=== PATIENT | female | born 1935 | race Caucasian/White ===

== ENCOUNTER → 2017-07-12 | Outpatient (CLI) | payer MEDICARE ==
--- NOTE | 2017-07-12 13:57 | CT ---
EXAMINATION TYPE: CT chest wo con DATE OF EXAM: 07/12/2017 COMPARISON: NONE HISTORY: Interstitial lung disease CT DLP: 95 mGycm. Automated Exposure Control for Dose Reduction was Utilized. TECHNIQUE: CT scan of the thorax is performed without IV contrast with noncontiguous sections limiti ng evaluation for pulmonary nodule given the high-resolution protocol for evaluation of interstitial lung disease. FINDINGS: LUNGS: There are small bilateral pleural effusions. There is no evidence of bronchiectasis or honeyco mbing. Pleural parenchymal scarring is seen at the lung bases. Evaluation for pulmonary nodules limit ed given noncontiguous slices. No pulmonary mass is identified. Minimal biapical pleural parenchymal scarring is present. There is no focal consolidation or interstitial edema. No interlobular septal th ickening is identified. The lungs are grossly clear, there is no concerning parenchymal mass or nodul e identified. There is no pleural effusion or pneumothorax seen. The tracheobronchial tree is milner nt. MEDIASTINUM: Lack of IV contrast is noted to limit evaluation for mediastinal and especially hilar ad enopathy. There are no definitive greater than 1 cm hilar or mediastinal lymph nodes. There is cardio megaly and enlargement of the main pulmonary artery measuring up to 3.4 cm. Ascending thoracic aorta is within normal limits measuring 3.7 cm. Small moderate pericardial effusion is evident. Partial vis ualization of a left-sided cardiac device is noted. Nonspecific mediastinal adenopathy is seen with e nlargement of a precarinal lymph node measuring up to 1.1 cm as well as a right hilar lymph node parth uring 1.1 cm and upper limits of normal left hilar lymph node measuring 1.0 cm in short axis. OTHER: Varicosities are noted along the superior chest wall/neck. Moderate multilevel degenerative ch anges of the thoracic spine are noted. IMPRESSION: 1. No evidence of interstitial lung disease, focal consolidation or pulmonary mass. Noncontiguous sli brandon limit evaluation for pulmonary nodule. 2. Small bilateral pleural effusions may be on the basis of congestive heart failure as there is card iomegaly appreciated. No interstitial pulmonary edema. 3. Small moderate pericardial effusion. 4. Enlargement of the main pulmonary artery, suggestive of underlying pulmonary arterial hypertension .
== END ==
LOC: RADCTMAIN 13:19
PROVIDERS: ATTEND Internal Medicine Sleep Medicine
DX: J90 Pleural effusion, not elsewhere classified (principal); I31.3 Pericardial effusion (noninflammatory); I28.9 Disease of pulmonary vessels, unspecified
CPT/HCPCS: 71250

== ENCOUNTER 2017-12-25 17:15 | Inpatient (IN) | payer MEDICARE ==
[2017-12-25] MEDS ORDERED: IPRATROPIUM-ALBUTEROL 3 ML NEB INHALATION STA (17:26)
[2017-12-25] MEDS ORDERED: methylPREDNISolone SOD SUCCI 125 MG/2 ML VIAL IV STA (17:26)
--- NOTE | 2017-12-25 17:30 | ED ---
General Adult HPI - General Chief complaint: Shortness of Breath Stated complaint: SUSAN Time Seen by Provider: 12/25/17 17:21 Source: patient, family, EMS, RN notes reviewed Mode of arrival: EMS Limitations: altered mental status - History of Present Illness Initial comments: Patient is a pleasant 82-year-old female presenting to the emergency department with difficulty in breathing. was recently admitted to a different hospital with adenovirus pneumonia. Patient is a very poor historian secondary to advanced dementia. History is mostly taken from EMS and somewhat from the family. Patient has been short of breath over the past couple of days. Patient did have oxygen saturation in the upper 80s at home. - Related Data Home Medications Medication Instructions Recorded Confirmed Ascorbic Acid [Vitamin C] 500 mg PO MOTH 05/30/14 12/25/17 Calcium Carbonate [Tums] 750 mg PO TUFR 05/30/14 12/25/17 Carbidopa/Levodopa [Sinemet CR 1 tab PO BID@0900,1300,1700 05/30/14 12/25/17 50-200 mg] Cholecalciferol [Vitamin D3] 2,000 units PO DAILY 05/30/14 12/25/17 Donepezil [Aricept] 10 mg PO HS 05/30/14 12/25/17 Hypromellose [Artificial Tears] 2 drop BOTH EYES QID 05/30/14 12/25/17 Neupro 8 mg TRANSDERM HS 05/30/14 12/25/17 Rivaroxaban [Xarelto] 15 mg PO AC-SUPPER 05/30/14 12/25/17 Sennosides-Docusate Sodium 2 tab PO HS 05/30/14 12/25/17 [Senokot-S] Aspirin EC [Ecotrin Low Dose] 81 mg PO AC-BRKFST 05/31/14 12/25/17 Carvedilol [Coreg*] 12.5 mg PO AC-BID 06/24/15 12/25/17 Lactulose 20 gm PO HS 06/24/15 12/25/17 Magnesium Hydroxide [Milk of 2,400 mg PO DAILY PRN 06/24/15 12/25/17 Magnesia] Ondansetron [Zofran ODT] 4 mg PO TID PRN 06/24/15 12/25/17 Carbidopa-Levodopa 25-100 mg 1 tab PO DAILY@0700 06/26/15 12/25/17 [Sinemet 25-100 mg] Carbidopa-Levodopa 25-100 mg 1 tab PO DAILY@1700 PRN 12/05/15 12/25/17 [Sinemet 25-100 mg] Escitalopram [Lexapro] 10 mg PO HS 12/05/15 12/25/17 Cefaclor [Ceclor] 250 mg PO DAILY 12/25/17 12/25/17 Enalapril [Vasotec] 5 mg PO HS 12/25/17 12/25/17 L. Rhamnosus GG/Inulin [Culturelle 1 cap PO AC-SUPPER 12/25/17 12/25/17 Probiotics Capsule] Allergies Allergy/AdvReac Type Severity Reaction Status Date / Time sulfite Allergy Unknown Verified 12/25/17 17:46 Review of Systems ROS Statement: Those systems with pertinent positive or pertinent negative responses have been documented in the HPI. ROS Other: All systems not noted in ROS Statement are negative. Limitations: ROS unobtainable due to patients medical condition Constitutional: Denies: fever Eyes: Denies: eye discharge ENT: Denies: epistaxis Respiratory: Reports: dyspnea Cardiovascular: Denies: edema Gastrointestinal: Denies: hematemesis Skin: Denies: rash Past Medical History Past Medical History: Atrial Fibrillation, CVA/TIA, Dementia, Hypertension, Osteoarthritis (OA) Additional Past Medical History / Comment(s): PARKINSONS, gait unsteady/vertigo, constipation, chronic uti's per pts daughter-pt was found to have MRSA in urine 2-2015, chronic back pain, rt hip fx,neuropathy,fx lumbar vertebre , diet controlled diabetes no meds but checks bs daily, thyroid nodules, skin cancer, anxiety History of Any Multi-Drug Resistant Organisms: MRSA Date of last positivie culture/infection: 05/2015 per pts daughter MDRO Source:: urine Past Surgical History: Orthopedic Surgery, Pacemaker Additional Past Surgical History / Comment(s): Rt hemiarthroplasy, compression fractures in back, pacemaker in 2006 (battery change 301, cataracts-lens implants, lt knee arthroscopy. Past Anesthesia/Blood Transfusion Reactions: No Reported Reaction Additional Past Anesthesia/Blood Transfusion Reaction / Comment(s): No transfusions reported Type of Cardiac Device: Permanent Pacemaker Device Placement Date:: 2006 Past Psychological History: No Psychological Hx Reported Smoking Status: Never smoker Past Alcohol Use History: None Reported Past Drug Use History: None Reported - Past Family History Father Additional Family Medical History / Comment(s): dad in his 50"s unk cause Mother Family Medical History: Coronary Artery Disease (CAD) General Exam Limitations: altered mental status General appearance: alert, in no apparent distress Head exam: Present: atraumatic Eye exam: Present: normal appearance, PERRL ENT exam: Present: normal oropharynx Neck exam: Present: normal inspection Respiratory exam: Present: wheezes, rhonchi Cardiovascular Exam: Present: regular rate, normal rhythm GI/Abdominal exam: Present: soft. Absent: distended, tenderness Extremities exam: Present: normal inspection. Absent: pedal edema, calf tenderness Neurological exam: Present: alert, altered Psychiatric exam: Present: normal affect, normal mood Skin exam: Present: normal color. Absent: rash Course Vital Signs 12/25/17 12/25/17 12/25/17 17:22 18:20 18:30 Temperature 97.1 F L Pulse Rate 71 60 62 Respiratory 20 20 Rate Blood Pressure 169/78 O2 Sat by Pulse 92 L Oximetry 12/25/17 12/25/17 19:15 19:32 Temperature 99.8 F H Pulse Rate 68 66 Respiratory 18 Rate Blood Pressure 207/83 180/101 O2 Sat by Pulse 98 Oximetry EKG Findings - EKG Comments: EKG Findings:: Paced rhythm at 72. QRS 180. QT 458. QTC 51. Left axis. Wide -complex QRS. Nonspecific ST-T. Medical Decision Making - Medical Decision Making Patient reevaluated and somewhat improved. Patient still has some wheezing. Case discussed with Dr. olguin, covering for Dr. Moore, who will admit for Dr. Avila. - Lab Data Result diagrams: 12/25/17 17:58 Lab Results 12/25/17 12/25/17 12/25/17 Range/Units 17:58 17:58 17:58 WBC 9.3 (3.8-10.6) k/uL RBC 4.78 (3.80-5.40) m/uL Hgb 14.6 (11.4-16.0) gm/dL Hct 44.7 (34.0-46.0) % MCV 93.5 (80.0-100.0) fL MCH 30.5 (25.0-35.0) pg MCHC 32.6 (31.0-37.0) g/dL RDW 13.3 (11.5-15.5) % Plt Count 143 L (150-450) k/uL Neutrophils % 78 % Lymphocytes % 14 % Monocytes % 4 % Eosinophils % 2 % Basophils % 0 % Neutrophils # 7.3 (1.3-7.7) k/uL Lymphocytes # 1.4 (1.0-4.8) k/uL Monocytes # 0.4 (0-1.0) k/uL Eosinophils # 0.2 (0-0.7) k/uL Basophils # 0.0 (0-0.2) k/uL PT 11.8 (9.0-12.0) sec INR 1.2 H (<1.2) APTT 26.3 (22.0-30.0) sec NT-Pro-B Natriuret Pep 2090 pg/mL - Radiology Data Radiology results: image reviewed (Chest x-ray shows mild interstitial changes.) Disposition Clinical Impression: Dyspnea Disposition: ADMITTED IP TO THIS HOSP Is patient prescribed a controlled substance at d/c from ED?: No Referrals: Jayce Avila MD [Primary Care Provider] - 1-2 days Decision Time: 19:43
[2017-12-25 18:09] LABS: Basophils % (A) 0 %; Eosinophils # (A) 0.2 k/uL (0-0.7); Eosinophils % (A) 2 %; HCT 44.7 % (34.0-46.0); HGB 14.6 gm/dL (11.4-16.0); Lymphocytes # (A) 1.4 k/uL (1.0-4.8); Lymphocytes % (A) 14 %; MCH 30.5 pg (25.0-35.0); MCHC 32.6 g/dL (31.0-37.0); MCV 93.5 fL (80.0-100.0); Mean Platelet Volume 8.8; Monocytes # (A) 0.4 k/uL (0-1.0); Monocytes % (A) 4 %; Neutrophils # (A) 7.3 k/uL (1.3-7.7); Neutrophils % (A) 78 %; Platelet Count 143 k/uL (150-450); RBC 4.78 m/uL (3.80-5.40); RDW 13.3 % (11.5-15.5); WBC 9.3 k/uL (3.8-10.6)
[2017-12-25 18:18] LABS: INR 1.2 (<1.2); Partial Thromboplastin Time 26.3 sec (22.0-30.0); Prothrombin Time 11.8 sec (9.0-12.0)
--- NOTE | 2017-12-25 18:55 | XR ---
EXAMINATION TYPE: XR chest 2V DATE OF EXAM: 12/25/2017 COMPARISON: 12/05/2015 HISTORY: Atrial fibrillation TECHNIQUE: Frontal and lateral views of the chest are obtained. FINDINGS: Heart appears enlarged. There is mild congestion. There is small linear density at the dani g bases. There is left axillary pacemaker with the lead tips in the right ventricle. There is no pulm onary consolidation. IMPRESSION: There is evidence of mild heart failure that is new compared to last exam. There are pro bably small pleural effusions.
[2017-12-25] MEDS ORDERED: LISINOPRIL 10 MG TAB PO STA (19:42)
[2017-12-25] MEDS ORDERED: IPRATROPIUM-ALBUTEROL 3 ML NEB INHALATION PRN (19:43)
[2017-12-25] MEDS: SODIUM CHLORIDE 0.9% 1,000 ML IV SCH (19:55)
[2017-12-25 20:26] LABS: ALT 16 U/L (9-52); AST 27 U/L (14-36); Albumin 3.8 g/dL (3.5-5.0); Alkaline Phosphatase 51 U/L (38-126); Anion Gap 8 mmol/L; Blood Urea Nitrogen 17 mg/dL (7-17); Calcium 9.1 mg/dL (8.4-10.2); Carbon Dioxide 25 mmol/L (22-30); Chloride 106 mmol/L (98-107); Glucose 118 mg/dL (74-99); Potassium 4.1 mmol/L (3.5-5.1); Sodium 139 mmol/L (137-145); Total Bilirubin 0.8 mg/dL (0.2-1.3); Total Protein 6.9 g/dL (6.3-8.2)
[2017-12-25 20:45] LABS: Creatine Kinase MB 0.8 ng/mL (0.0-2.4); Troponin I 0.032 ng/mL (0.000-0.034)
[2017-12-25] MEDS: LEVOFLOXACIN 500 MG TAB PO SCH (20:53)
[2017-12-25 21:28] VITALS: BMI 25.0
[2017-12-25] MEDS ORDERED: hydrALAZINE HCL 25 MG TAB PO PRN (22:00)
[2017-12-25] MEDS ORDERED: LACTULOSE 20 GM/30 ML CUP PO PRN (22:01)
[2017-12-25] MEDS: DONEPEZIL 10 MG TAB PO SCH (22:50)
[2017-12-25] MEDS: RIVAROXABAN 15 MG TAB PO SCH (22:50)
[2017-12-25] MEDS: ROTIGOTINE 8 MG TRANSDERM SCH (22:50)
[2017-12-25] MEDS: ESCITALOPRAM 10 MG TAB PO SCH (22:50)
[2017-12-25] MEDS: CARVEDILOL 12.5 MG TAB PO SCH (22:52)
[2017-12-25] MEDS: LISINOPRIL 10 MG TAB PO SCH (22:52)
[2017-12-25] MEDS: SENNOSIDES-DOCUSATE SODIUM 1 EACH TAB PO SCH (22:54)
[2017-12-25] MEDS: CARBIDOPA-LEVODOPA ER 50-200MG 1 EACH TABLET.ER PO SCH (23:26)
[2017-12-25] MEDS: methylPREDNISolone SOD SUCCI 125 MG/2 ML VIAL IV SCH (23:27)
[2017-12-26] MEDS: IPRATROPIUM-ALBUTEROL 3 ML NEB INHALATION SCH ×5 (03:28→19:36)
[2017-12-26] MEDS: methylPREDNISolone SOD SUCCI 125 MG/2 ML VIAL IV SCH ×2 (05:17→12:22)
[2017-12-26 06:40] LABS: Glucose,Whole Blood 158 mg/dL (75-99)
[2017-12-26] MEDS: CARBIDOPA-LEVODOPA 25-100 MG 1 EACH TAB PO SCH (08:52)
[2017-12-26] MEDS: CARVEDILOL 12.5 MG TAB PO SCH ×2 (08:52→18:18)
[2017-12-26] MEDS: ASPIRIN 81 MG PO SCH (08:53)
[2017-12-26] MEDS ORDERED: CARBIDOPA-LEVODOPA ER 50-200MG 1 EACH TABLET.ER PO SCH (09:00)
[2017-12-26] MEDS: ARTIFICIAL TEARS-HYPROMELLOSE DROPS 15 ML BTL BOTH EYES SCH ×4 (10:47→21:07)
[2017-12-26] MEDS: CARBIDOPA-LEVODOPA ER 50-200MG 1 EACH TABLET.ER PO SCH ×3 (10:47→19:02)
[2017-12-26] MEDS ORDERED: FUROSEMIDE 10 MG/ML 4 ML VIAL IV STA (12:32)
--- NOTE | 2017-12-26 12:40 | P.CNPUL ---
History of Present Illness Consult date: 12/26/17 Requesting physician: Dilip E Carissa Reason for consult: dyspnea, hypoxemia, abnormal CXR/CT Chief complaint: Shortness of breath, hypoxemia, fluid overload History of present illness: This is a 82-year-old white female patient of Dr. Avila, who was brought to the emergency department per ambulance on 12/25/2017 for evaluation of dyspnea and hypoxemia, patient had that O2 saturation in the upper 80s at home. She denied any fever or chills, night any cough or congestion, night any chest pain, denied orthopnea. Denied any swelling in lower extremities. Patient is a poor historian, she has underlying history of dementia. She resides at home with her , who is currently hospitalized with pneumonia. Treat includes atrial fibrillation with permanent pacemaker placement, CVA/TIA, hypertension, osteoarthritis, gait instability, recurrent UTIs with history of MRSA in the urine in 2016, chronic back pain, diabetes mellitus type 2. No history of chronic lung disease. Patient is a lifetime nonsmoker. EKG showed paced rhythm at [address] T wave changes. Chest x-ray was completed and showed mild interstitial congestion, small pleural effusions, but no pulmonary consolidation. Patient has been afebrile, room air pulse ox 98% this morning, respirations are even and nonlabored, patient is comfortable and is not complaining of any ongoing dyspnea at this point. Her cough is congested, she is able to bring up some yellow sputum at times. I work showed no evidence of leukocytosis, and a BBC is 9.3, hemoglobin is 14.6, INR is 1.2, electrolytes and renal profile were unremarkable, troponin was negative 1, proBNP was slightly elevated at 2089. Review of Systems All systems: negative Constitutional: Denies chills, Denies fever Eyes: denies blurred vision, denies pain Ears, nose, mouth and throat: Denies headache, Denies sore throat Cardiovascular: Denies chest pain, Denies shortness of breath Respiratory: Reports congestion, Reports cough with sputum, Reports dyspnea, Denies cough Gastrointestinal: Denies abdominal pain, Denies diarrhea, Denies nausea, Denies vomiting Genitourinary: Denies dysuria, Denies hematuria Musculoskeletal: Denies myalgias Integumentary: Denies pruritus, Denies rash Neurological: Denies numbness, Denies weakness Psychiatric: Denies anxiety, Denies depression Endocrine: Denies fatigue, Denies weight change Past Medical History Past Medical History: Atrial Fibrillation, CVA/TIA, Dementia, Hypertension, Osteoarthritis (OA) Additional Past Medical History / Comment(s): PARKINSONS, gait unsteady/vertigo, constipation, chronic uti's per pts daughter-pt was found to have MRSA in urine 2-2015, chronic back pain, rt hip fx,neuropathy,fx lumbar vertebre 3-2011, diet controlled diabetes no meds but checks bs daily, thyroid nodules, skin cancer, anxiety History of Any Multi-Drug Resistant Organisms: MRSA Date of last positivie culture/infection: 05/2015 per pts daughter MDRO Source:: urine Past Surgical History: Orthopedic Surgery, Pacemaker Additional Past Surgical History / Comment(s): Rt hemiarthroplasy, compression fractures in back, pacemaker in 2006 (battery change 3013, cataracts-lens implants, lt knee arthroscopy. Past Anesthesia/Blood Transfusion Reactions: No Reported Reaction Additional Past Anesthesia/Blood Transfusion Reaction / Comment(s): No transfusions reported Type of Cardiac Device: Permanent Pacemaker Device Placement Date:: 2006 Past Psychological History: No Psychological Hx Reported Smoking Status: Never smoker Past Alcohol Use History: None Reported Past Drug Use History: None Reported - Past Family History Father Additional Family Medical History / Comment(s): dad in his 50"s unk cause Mother Family Medical History: Coronary Artery Disease (CAD) Medications and Allergies Home Medications Medication Instructions Recorded Confirmed Type Ascorbic Acid [Vitamin C] 500 mg PO MOTH 05/30/14 12/25/17 History Calcium Carbonate [Tums] 750 mg PO TUFR 05/30/14 12/25/17 History Carbidopa/Levodopa [Sinemet CR 1 tab PO TID@0900,1300,1700 05/30/14 12/25/17 History 50-200 mg] Cholecalciferol [Vitamin D3] 2,000 units PO DAILY 05/30/14 12/25/17 History Donepezil [Aricept] 10 mg PO HS 05/30/14 12/25/17 History Hypromellose [Artificial Tears] 2 drop BOTH EYES QID 05/30/14 12/25/17 History Neupro 8 mg TRANSDERM HS 05/30/14 12/25/17 History Rivaroxaban [Xarelto] 15 mg PO AC-SUPPER 05/30/14 12/25/17 History Sennosides-Docusate Sodium 2 tab PO HS 05/30/14 12/25/17 History [Senokot-S] Aspirin EC [Ecotrin Low Dose] 81 mg PO AC-BRKFST 05/31/14 12/25/17 History Carvedilol [Coreg*] 12.5 mg PO AC-BID 06/24/15 12/25/17 History Lactulose 20 gm PO HS 06/24/15 12/25/17 History Magnesium Hydroxide [Milk of 2,400 mg PO DAILY PRN 06/24/15 12/25/17 History Magnesia] Ondansetron [Zofran ODT] 4 mg PO TID PRN 06/24/15 12/25/17 History Carbidopa-Levodopa 25-100 mg 1 tab PO DAILY@0700 06/26/15 12/25/17 History [Sinemet 25-100 mg] Carbidopa-Levodopa 25-100 mg 1 tab PO DAILY@1700 PRN 12/05/15 12/25/17 History [Sinemet 25-100 mg] Escitalopram [Lexapro] 10 mg PO HS 12/05/15 12/25/17 History Cefaclor [Ceclor] 250 mg PO DAILY 12/25/17 12/25/17 History Docusate [Colace] 200 mg PO BID 12/25/17 12/25/17 History Enalapril [Vasotec] 5 mg PO HS 12/25/17 12/25/17 History L. Rhamnosus GG/Inulin [Culturelle 1 cap PO AC-SUPPER 12/25/17 12/25/17 History Probiotics Capsule] Allergies Allergy/AdvReac Type Severity Reaction Status Date / Time sulfite Allergy Unknown Verified 12/25/17 17:46 Physical Exam Vitals: Vital Signs Temp Pulse Pulse Resp BP BP Pulse Ox 12/26/17 08:00 98 16 12/26/17 07:31 98 16 152/72 98 12/26/17 07:05 60 12/26/17 06:53 68 12/26/17 03:36 16 12/26/17 03:35 60 16 96 12/25/17 23:09 98.4 F 68 16 164/89 98 12/25/17 21:21 97.4 F L 67 16 186/83 98 12/25/17 20:54 97.6 F 60 18 177/87 97 12/25/17 20:33 61 18 184/82 98 12/25/17 19:32 66 180/101 12/25/17 19:15 99.8 F H 68 18 207/83 98 12/25/17 18:30 62 20 12/25/17 18:20 60 12/25/17 17:22 97.1 F L 71 20 169/78 92 L Intake and Output 12/25/17 12/26/17 12/26/17 22:59 06:59 14:59 Intake Total 236 Balance 236 Intake: Oral 236 Other: Voiding Method Toilet Toilet Diaper Diaper # Voids 1 3 Weight 70.307 kg 68.5 kg GENERAL EXAM: Alert, active, comfortable in no apparent distress. HEAD: Normocephalic/atraumatic. EYES: Normal reaction of pupils, equal size. Conjunctiva pink, sclera white. NOSE: Clear with pink turbinates. THROAT: No erythema or exudates. NECK: No masses, no JVD, no thyroid enlargement, no adenopathy. CHEST: No chest wall deformity. Symmetrical expansion. LUNGS: Equal air entry with diffuse rhonchi, crackles at the right upper lobe, and bilateral bases. CVS: Regular rate and rhythm, normal S1 and S2, no gallops, no murmurs, no rubs ABDOMEN: Soft, nontender. No hepatosplenomegaly, normal bowel sounds, no guarding or rigidity. EXTREMITIES: No clubbing, no edema, no cyanosis, 2+ pulses and upper and lower extremities. MUSCULOSKELETAL: Muscle strength and tone normal. SPINE: No scoliosis or deformity SKIN: No rashes CENTRAL NERVOUS SYSTEM: Alert and oriented -2. No focal deficits, tone is normal in all 4 extremities. PSYCHIATRIC: Alert and oriented -2. Appropriate affect. Intact judgment and insight. Results - Laboratory Findings CBC and BMP: 12/25/17 17:58 12/25/17 19:32 PT/INR, D-dimer PT 11.8 sec (9.0-12.0) 12/25/17 17:58 INR 1.2 (<1.2) H 12/25/17 17:58 Abnormal lab findings: Abnormal Labs 12/25/17 12/25/17 12/25/17 17:58 17:58 19:32 Plt Count 143 L INR 1.2 H Glucose 118 H POC Glucose (mg/dL) 12/26/17 06:37 Plt Count INR Glucose POC Glucose (mg/dL) 158 H - Diagnostic Findings Chest x-ray: report reviewed Additional studies: EKG reviewed Assessment and Plan Plan: Assessment: #1. Acute hypoxic respiratory failure secondary to acute tracheobronchitis. There may be a component of mild congestive heart failure, with systolic dysfunction. Chest x-ray showed mild interstitial edema, and small pleural effusions. #2. Paroxysmal atrial fibrillation, patient has a permanent pacemaker in place , on chronic anticoagulation of Xarelto #3. Acute tracheobronchitis #4. History of advanced dementia #5. History of CVA/TIA, Parkinson's, gait instability #6. Hypertension #7. History of recurrent UTIs with episode of MRSA in the urine in 2016 #8. Chronic back pain #9. Diabetes mellitus 2 #10. Lifetime nonsmoker Plan: Continue steroids, nebulized bronchodilators, antibiotics. Patient is calm and comfortable, and denies any dyspnea. Chest x-ray was reviewed, and showed mild interstitial changes, and small left pleural effusion, patient was given a dose of Lasix. She is back on room air, her pulse ox is 98. Denies any chest pain, denies any fever or chills, seems to be congested, and she is bringing up some sputum. Increase activity, let the patient sit up in the chair, ambulate with assistance. We'll continue to follow I performed a history & physical examination of the patient and discussed their management with my nurse practitioner, Dea Landers. I reviewed the nurse practitioner's note and agree with the documented findings and plan of care. Lung sounds are positive for diffuse rhonchi and rales. The findings and the impression was discussed with the patient. I attest to the documentation by the nurse practitioner. Time with Patient: Greater than 30
[2017-12-26 12:57] LABS: Glucose,Whole Blood 272 mg/dL (75-99)
--- NOTE | 2017-12-26 14:08 | P.HPIM ---
History of Present Illness 82-year-old the present the female with advanced dementia and imbued much of the history from her was brought in because of shortness of breath patient did is comparing of shortness of breath complaining of cough unable to get much of the history from the patient as patient doesn't have much at baseline found to have pulmonary edema on the chest x-ray with elevated BNP in the JVD. Patient previous ejection fraction was around 45-50% with concentric the left anterior hypertrophy maybe even chronic diastolic dysfunction. Patient denied any fever chills patient is not wheezing on exam but although patient was started on systemic steroids which increased her blood sugar systemic steroids will be discontinued because all the continue inhaled steroids. Repeat echocardiogram will be obtained today. Physical therapy and occupational therapy consultation. Patient is not a smoker. Patient was given 1 dose of Lasix today pulmonology was consulted from ER. Review of Systems All other review of systems is negative but although unable to get much of the review of systems because of her critical condition. Past Medical History Past Medical History: Atrial Fibrillation, CVA/TIA, Dementia, Hypertension, Osteoarthritis (OA) Additional Past Medical History / Comment(s): PARKINSONS, gait unsteady/vertigo, constipation, chronic uti's per pts daughter-pt was found to have MRSA in urine 2-2015, chronic back pain, rt hip fx,neuropathy,fx lumbar vertebre 3-2011, diet controlled diabetes no meds but checks bs daily, thyroid nodules, skin cancer, anxiety History of Any Multi-Drug Resistant Organisms: MRSA Date of last positivie culture/infection: 05/2015 per pts daughter MDRO Source:: urine Past Surgical History: Orthopedic Surgery, Pacemaker Additional Past Surgical History / Comment(s): Rt hemiarthroplasy, compression fractures in back, pacemaker in 2006 (battery change 3013, cataracts-lens implants, lt knee arthroscopy. Past Anesthesia/Blood Transfusion Reactions: No Reported Reaction Additional Past Anesthesia/Blood Transfusion Reaction / Comment(s): No transfusions reported Type of Cardiac Device: Permanent Pacemaker Device Placement Date:: 2006 Past Psychological History: No Psychological Hx Reported Smoking Status: Never smoker Past Alcohol Use History: None Reported Past Drug Use History: None Reported - Past Family History Father Additional Family Medical History / Comment(s): dad in his 50"s unk cause Mother Family Medical History: Coronary Artery Disease (CAD) Medications and Allergies Home Medications Medication Instructions Recorded Confirmed Type Ascorbic Acid [Vitamin C] 500 mg PO MOTH 05/30/14 12/25/17 History Calcium Carbonate [Tums] 750 mg PO TUFR 05/30/14 12/25/17 History Carbidopa/Levodopa [Sinemet CR 1 tab PO TID@0900,1300,1700 05/30/14 12/25/17 History 50-200 mg] Cholecalciferol [Vitamin D3] 2,000 units PO DAILY 05/30/14 12/25/17 History Donepezil [Aricept] 10 mg PO HS 05/30/14 12/25/17 History Hypromellose [Artificial Tears] 2 drop BOTH EYES QID 05/30/14 12/25/17 History Neupro 8 mg TRANSDERM HS 05/30/14 12/25/17 History Rivaroxaban [Xarelto] 15 mg PO AC-SUPPER 05/30/14 12/25/17 History Sennosides-Docusate Sodium 2 tab PO HS 05/30/14 12/25/17 History [Senokot-S] Aspirin EC [Ecotrin Low Dose] 81 mg PO AC-BRKFST 05/31/14 12/25/17 History Carvedilol [Coreg*] 12.5 mg PO AC-BID 06/24/15 12/25/17 History Lactulose 20 gm PO HS 06/24/15 12/25/17 History Magnesium Hydroxide [Milk of 2,400 mg PO DAILY PRN 06/24/15 12/25/17 History Magnesia] Ondansetron [Zofran ODT] 4 mg PO TID PRN 06/24/15 12/25/17 History Carbidopa-Levodopa 25-100 mg 1 tab PO DAILY@0700 06/26/15 12/25/17 History [Sinemet 25-100 mg] Carbidopa-Levodopa 25-100 mg 1 tab PO DAILY@1700 PRN 12/05/15 12/25/17 History [Sinemet 25-100 mg] Escitalopram [Lexapro] 10 mg PO HS 12/05/15 12/25/17 History Cefaclor [Ceclor] 250 mg PO DAILY 12/25/17 12/25/17 History Docusate [Colace] 200 mg PO BID 12/25/17 12/25/17 History Enalapril [Vasotec] 5 mg PO HS 12/25/17 12/25/17 History L. Rhamnosus GG/Inulin [Culturelle 1 cap PO AC-SUPPER 12/25/17 12/25/17 History Probiotics Capsule] Allergies Allergy/AdvReac Type Severity Reaction Status Date / Time sulfite Allergy Unknown Verified 12/25/17 17:46 Physical Exam Vitals: Vital Signs Temp Pulse Pulse Resp BP BP Pulse Ox 12/26/17 12:38 12 93 L 12/26/17 12:00 98 16 12/26/17 11:52 62 12/26/17 11:42 66 12/26/17 08:00 98 16 12/26/17 07:31 98 16 152/72 98 12/26/17 07:05 60 12/26/17 06:53 68 12/26/17 03:36 16 12/26/17 03:35 60 16 96 12/25/17 23:09 98.4 F 68 16 164/89 98 12/25/17 21:21 97.4 F L 67 16 186/83 98 12/25/17 20:54 97.6 F 60 18 177/87 97 12/25/17 20:33 61 18 184/82 98 12/25/17 19:32 66 180/101 12/25/17 19:15 99.8 F H 68 18 207/83 98 12/25/17 18:30 62 20 12/25/17 18:20 60 12/25/17 17:22 97.1 F L 71 20 169/78 92 L Intake and Output 12/25/17 12/26/17 12/26/17 22:59 06:59 14:59 Intake Total 236 Balance 236 Intake: Oral 236 Other: Voiding Method Toilet Toilet Diaper Diaper # Voids 1 3 2 Weight 70.307 kg 68.5 kg PHYSICAL EXAMINATION: GENERAL: The patient is alert and oriented x3, not in any acute distress. Well developed, well nourished. HEENT: Pupils are round and equally reacting to light. EOMI. No scleral icterus. No conjunctival pallor. Normocephalic, atraumatic. No pharyngeal erythema. No thyromegaly. CARDIOVASCULAR: S1 and S2 present. No murmurs, rubs, or gallops elevated JVD. PULMONARY: Fairly good air entry into bilateral lung park no wheezing rhonchus breath sounds ABDOMEN: Soft, nontender, nondistended, normoactive bowel sounds. No palpable organomegaly. MUSCULOSKELETAL: No joint swelling or deformity. EXTREMITIES: No cyanosis, clubbing, or pedal edema. NEUROLOGICAL: Gross neurological examination did not reveal any focal deficits. SKIN: No rashes. Results CBC & Chem 7: 12/25/17 17:58 12/25/17 19:32 Labs: Abnormal Lab Results - Last 24 Hours (Table) 12/25/17 12/25/17 12/25/17 Range/Units 17:58 17:58 19:32 Plt Count 143 L (150-450) k/uL INR 1.2 H (<1.2) Glucose 118 H (74-99) mg/dL POC Glucose (mg/dL) (75-99) mg/dL 12/26/17 12/26/17 Range/Units 06:37 12:19 Plt Count (150-450) k/uL INR (<1.2) Glucose (74-99) mg/dL POC Glucose (mg/dL) 158 H 272 H (75-99) mg/dL Thrombosis Risk Factor Assmnt - Choose All That Apply Each Risk Factor Represents 2 Points: Malignancy Each Risk Factor Represents 3 Points: Age 75 years or older Thrombosis Risk Factor Assessment Total Risk Factor Score: 5 Thrombosis Risk Factor Assessment Level: High Risk Assessment and Plan Plan: -Short of breath hypoxemia: Secondary to possible CHF exacerbation chronic systolic as well as diastolic dysfunction with acute exacerbation previous exam ejection fraction around 45% patient will be given a dose of Lasix echocardiogram will be obtained. -Type 2 diabetes mellitus elevated blood sugars secondary to systemic steroids are do not believe she'll require any steroids at this time these will be discontinued -Advanced dementia probably will body dementia -History of Parkinson's fairly stable now -Hypertension -chronic low back pain
--- NOTE | 2017-12-26 15:34 | ECHOF ---
Referral Reason:CHF MEASUREMENTS -------- HEIGHT: 167.6 cm WEIGHT: 68.5 kg BP: 152/72 IVSd: 1.6 cm (0.6 - 1.1) LVIDd: 4.3 cm (3.9 - 5.3) LVPWd: 1.7 cm (0.6 - 1.1) IVSs: 1.9 cm LVIDs: 2.7 cm LVPWs: 2.2 cm Ao Diam: 2.8 cm (2.0 - 3.7) AV Cusp: 1.9 cm (1.5 - 2.6) LA Diam: 3.9 cm (2.7 - 3.8) MV EXCURSION: 7.636 mm (> 18.000) MV EF SLOPE: 46 mm/s (70 - 150) EPSS: 1.0 cm MV E Norm: 0.86 m/s MV DecT: 155 ms MV A Norm: 0.38 m/s MV E/A Ratio: 2.28 AR PHT: 690 ms RAP: 5.00 mmHg RVSP: 33.38 mmHg FINDINGS -------- Sinus rhythm. This was a technically good study. The left ventricular size is normal. There is severe concentric left ventricular hypertrophy. Ove rall left ventricular systolic function is normal with, an EF between 55 - 60 %. The right ventricle is normal in size and function. The left atrium is normal in size. The right atrium is normal in size. The aortic valve is trileaflet, and appears structurally normal. No aortic stenosis or regurgitation. Mild mitral regurgitation is present. Mild tricuspid regurgitation present. The right ventricular systolic pressure, as measured by Doppl er, is 33.38mmHg. Pulmonic valve appears structurally normal. The aortic root size is normal. Normal inferior vena cava with normal inspiratory collapse consistent with estimated right atrial pre ssure of 5 mmHg. The pericardium is normal. CONCLUSIONS -------- 1. Sinus rhythm. 2. This was a technically good study. 3. The left ventricular size is normal. 4. There is severe concentric left ventricular hypertrophy. 5. Overall left ventricular systolic function is normal with, an EF between 55 - 60 %. 6. The right ventricle is normal in size and function. 7. The left atrium is normal in size. 8. The right atrium is normal in size. 9. The aortic valve is trileaflet, and appears structurally normal. No aortic stenosis or regurgitati on. 10. Mild mitral regurgitation is present. 11. Mild tricuspid regurgitation present. 12. The right ventricular systolic pressure, as measured by Doppler, is 33.38mmHg. 13. Pulmonic valve appears structurally normal. 14. The aortic root size is normal. 15. Normal inferior vena cava with normal inspiratory collapse consistent with estimated right atrial pressure of 5 mmHg. 16. The pericardium is normal. SUPERVISOR COMMUNICATIONS AND SIGNALS: Litzy Zimmerman RDCS
[2017-12-26] MEDS ORDERED: CARBIDOPA-LEVODOPA 25-100 MG 1 EACH TAB PO PRN (17:00)
[2017-12-26 18:01] LABS: Glucose,Whole Blood 336 mg/dL (75-99)
[2017-12-26] MEDS: RIVAROXABAN 15 MG TAB PO SCH (18:18)
[2017-12-26] MEDS: INSULIN ASPART 100 UNIT/ML 1 ML 10 ML VIAL SQ SCH ×2 (18:18→21:08)
[2017-12-26 20:27] LABS: Glucose,Whole Blood 277 mg/dL (75-99)
[2017-12-26] MEDS: LISINOPRIL 10 MG TAB PO SCH (21:07)
[2017-12-26] MEDS: LEVOFLOXACIN 500 MG TAB PO SCH (21:07)
[2017-12-26] MEDS: DONEPEZIL 10 MG TAB PO SCH (21:07)
[2017-12-26] MEDS: ESCITALOPRAM 10 MG TAB PO SCH (21:07)
[2017-12-26] MEDS: SENNOSIDES-DOCUSATE SODIUM 1 EACH TAB PO SCH (21:07)
[2017-12-26] MEDS: ROTIGOTINE 8 MG TRANSDERM SCH (21:08)
[2017-12-26] MEDS: SODIUM CHLORIDE 0.9% 1,000 ML IV SCH (21:09)
[2017-12-27 06:46] LABS: Glucose,Whole Blood 114 mg/dL (75-99)
[2017-12-27] MEDS: CARBIDOPA-LEVODOPA 25-100 MG 1 EACH TAB PO SCH (07:12)
[2017-12-27 07:41] LABS: Calcium 9.1 mg/dL (8.4-10.2)
[2017-12-27 07:47] VITALS: BP 153/86; RESP 18; TEMP 97.5
[2017-12-27] MEDS: IPRATROPIUM-ALBUTEROL 3 ML NEB INHALATION SCH ×3 (08:09→16:40)
[2017-12-27] MEDS ORDERED: FUROSEMIDE 20 MG TAB PO SCH (09:00)
[2017-12-27] MEDS: CARVEDILOL 12.5 MG TAB PO SCH (09:45)
[2017-12-27] MEDS: CARBIDOPA-LEVODOPA ER 50-200MG 1 EACH TABLET.ER PO SCH ×2 (09:46→13:56)
[2017-12-27] MEDS: ASPIRIN 81 MG PO SCH (09:46)
[2017-12-27] MEDS: INSULIN ASPART 100 UNIT/ML 1 ML 10 ML VIAL SQ SCH ×2 (09:47→12:38)
[2017-12-27] MEDS: ARTIFICIAL TEARS-HYPROMELLOSE DROPS 15 ML BTL BOTH EYES SCH ×2 (11:33→13:03)
[2017-12-27 12:12] VITALS: PULSE 68
--- NOTE | 2017-12-27 12:23 | P.PN ---
Subjective Progress Note Date: 12/27/17 Principal diagnosis: Acute hypoxic rest she failure secondary to of mild congestive heart failure with systolic dysfunction, and acute tracheobronchitis, improved This is a 82-year-old white female patient of Dr. Avila, who was brought to the emergency department per ambulance on 12/25/2017 for evaluation of dyspnea and hypoxemia, patient had that O2 saturation in the upper 80s at home. She denied any fever or chills, night any cough or congestion, night any chest pain, denied orthopnea. Denied any swelling in lower extremities. Patient is a poor historian, she has underlying history of dementia. She resides at home with her , who is currently hospitalized with pneumonia. Treat includes atrial fibrillation with permanent pacemaker placement, CVA/TIA, hypertension, osteoarthritis, gait instability, recurrent UTIs with history of MRSA in the urine in 2016, chronic back pain, diabetes mellitus type 2. No history of chronic lung disease. Patient is a lifetime nonsmoker. EKG showed paced rhythm at [address] T wave changes. Chest x-ray was completed and showed mild interstitial congestion, small pleural effusions, but no pulmonary consolidation. Patient has been afebrile, room air pulse ox 98% this morning, respirations are even and nonlabored, patient is comfortable and is not complaining of any ongoing dyspnea at this point. Her cough is congested, she is able to bring up some yellow sputum at times. I work showed no evidence of leukocytosis, and a BBC is 9.3, hemoglobin is 14.6, INR is 1.2, electrolytes and renal profile were unremarkable, troponin was negative 1, proBNP was slightly elevated at 2090. On 12/27/2017 patient seen in follow-up. Feeling better, breathing easier, her pulse ox is 95%, patient is afebrile, those are stable. Lung sounds are significantly less congested on today's exam, some bibasilar crackles, oral significantly improved. Patient is occasionally coughing, she is able to bring up sputum. Afebrile, no chills. The patient on small dose of oral Lasix on a daily basis. Patient has diuresis, and her weight is down by 2.5 kg in the last 24 hours. No edema, patient is awake and alert, she states she has been walking to the bathroom, tolerating activity well. Objective - Vital Signs Vital signs: Vital Signs Temp 97.5 F L 12/27/17 07:10 Pulse 68 12/27/17 12:12 Resp 18 12/27/17 07:10 BP 153/86 12/27/17 07:10 Pulse Ox 95 12/27/17 07:10 Intake & Output 12/26/17 12/27/17 12/27/17 18:59 06:59 18:59 Intake Total 336 240 Balance 336 240 Weight 66 kg Intake: Oral 336 240 Other: Voiding Method Toilet Toilet Toilet Diaper Diaper Diaper Incontinent Incontinent Incontinent # Voids 2 1 - Exam GENERAL EXAM: Alert, active, comfortable in no apparent distress. HEAD: Normocephalic/atraumatic. EYES: Normal reaction of pupils, equal size. Conjunctiva pink, sclera white. NOSE: Clear with pink turbinates. THROAT: No erythema or exudates. NECK: No masses, no JVD, no thyroid enlargement, no adenopathy. CHEST: No chest wall deformity. Symmetrical expansion. LUNGS: Equal air entry with a few bibasilar crackles CVS: Regular rate and rhythm, normal S1 and S2, no gallops, no murmurs, no rubs ABDOMEN: Soft, nontender. No hepatosplenomegaly, normal bowel sounds, no guarding or rigidity. EXTREMITIES: No clubbing, no edema, no cyanosis, 2+ pulses and upper and lower extremities. MUSCULOSKELETAL: Muscle strength and tone normal. SPINE: No scoliosis or deformity SKIN: No rashes CENTRAL NERVOUS SYSTEM: Alert and oriented -2. No focal deficits, tone is normal in all 4 extremities. PSYCHIATRIC: Alert and oriented -2. Appropriate affect. Intact judgment and insight. - Labs CBC & Chem 7: 12/25/17 17:58 12/27/17 06:41 Labs: Abnormal Lab Results - Last 24 Hours (Table) 12/26/17 12/26/17 12/26/17 Range/Units 12:19 17:52 20:22 BUN (7-17) mg/dL Glucose (74-99) mg/dL POC Glucose (mg/dL) 272 H 336 H 277 H (75-99) mg/dL 12/27/17 12/27/17 Range/Units 06:41 06:44 BUN 37 H (7-17) mg/dL Glucose 123 H (74-99) mg/dL POC Glucose (mg/dL) 114 H (75-99) mg/dL Assessment and Plan Plan: Assessment: #1. Acute hypoxic respiratory failure secondary to a component of mild congestive heart failure, with systolic dysfunction. Chest x-ray showed mild interstitial edema, and small pleural effusions. #2. Paroxysmal atrial fibrillation, patient has a permanent pacemaker in place , on chronic anticoagulation of Xarelto #3. Acute tracheobronchitis #4. History of advanced dementia #5. History of CVA/TIA, Parkinson's, gait instability #6. Hypertension #7. History of recurrent UTIs with episode of MRSA in the urine in 2016 #8. Chronic back pain #9. Diabetes mellitus 2 #10. Lifetime nonsmoker Plan: Patient is improving, hypoxemia has resolved, she is on room air, breathing easier, no acute complaints. No signs are stable. She has received a few doses of IV steroids, a lot less congested. We'll put the patient on small dose of oral Lasix on a daily basis. She has diuresed. Increase activity as tolerated. Continue nebulized bronchodilators. I performed a history & physical examination of the patient and discussed their management with my nurse practitioner, Dea Landers. I reviewed the nurse practitioner's note and agree with the documented findings and plan of care. Lung sounds are positive for bibasilar rales. The findings and the impression was discussed with the patient. I attest to the documentation by the nurse practitioner. Time with Patient: Less than 30
[2017-12-27] MEDS ORDERED: POLYETHYLENE GLYCOL 3350 17 GM POWD.PACK PO SCH (12:30)
--- NOTE | 2017-12-27 16:48 | P.DS ---
Providers Date of admission: 12/26/17 18:22 Attending physician: Dilip Ferrer MD Consults: 12/25/17 19:43 Consult Physician Routine Consulting Provider: Brett Birch Consult Reason/Comments: dyspnea Do you want consulting provider notified?: Yes Primary care physician: Jayce oTrresqvi Hospital Course: Patient is admitted with status of breath found to have mild heart failure exacerbation patient and minimally depressed ejection fraction as well as diastolic dysfunction patient was started on low-dose of Lasix in my opinion Lasix dose may need to be increased down the line. Considering her age and fragile situation patient will be started on low-dose of Lasix. Patient was also treated for bronchitis. Patient is quite weak ideally benefit from subacute rehabilitation but the family is able to take care of him and wanted to take her to take her home. PHYSICAL EXAMINATION: GENERAL: The patient is alert and oriented x2-3, thin built fragile generalized weakness. HEENT: Pupils are round and equally reacting to light. EOMI. No scleral icterus. No conjunctival pallor. Normocephalic, atraumatic. No pharyngeal erythema. No thyromegaly. CARDIOVASCULAR: S1 and S2 present. No murmurs, rubs, or gallops. PULMONARY: Chest is clear to auscultation, no wheezing or crackles. ABDOMEN: Soft, nontender, nondistended, normoactive bowel sounds. No palpable organomegaly. MUSCULOSKELETAL: No joint swelling or deformity. EXTREMITIES: No cyanosis, clubbing, or pedal edema. NEUROLOGICAL: Gross neurological examination did not reveal any focal deficits. SKIN: No rashes. Assessment and Plan Plan: -Short of breath and hypoxemia: Secondary to possible CHF exacerbation chronic s diastolic dysfunction with acute exacerbation previous exam ejection issues ejection fraction normalized. -Mild acute bronchitis -Type 2 diabetes mellitus elevated blood sugars secondary to systemic steroids are do not believe she'll require any steroids at this time these will be discontinued -Advanced dementia probably possible Lewy body dementia -History of Parkinson's fairly stable now -Hypertension -chronic low back pain Plan - Discharge Summary New Discharge Prescriptions: New Furosemide [Lasix] 20 mg PO DAILY #30 tab Doxycycline Monohydrate [Monodox] 100 mg PO BID 3 Days #6 cap Continue Sennosides-Docusate Sodium [Senokot-S] 2 tab PO HS Ascorbic Acid [Vitamin C] 500 mg PO MOTH Rivaroxaban [Xarelto] 15 mg PO AC-SUPPER Donepezil [Aricept] 10 mg PO HS Cholecalciferol [Vitamin D3] 2,000 units PO DAILY Carbidopa/Levodopa [Sinemet CR 50-200 mg] 1 tab PO TID@0900,1300,1700 Calcium Carbonate [Tums] 750 mg PO TUFR Neupro 8 mg TRANSDERM HS Hypromellose [Artificial Tears] 2 drop BOTH EYES QID Aspirin EC [Ecotrin Low Dose] 81 mg PO AC-BRKFST Ondansetron [Zofran ODT] 4 mg PO TID PRN PRN Reason: Nausea Magnesium Hydroxide [Milk of Magnesia] 2,400 mg PO DAILY PRN PRN Reason: Constipation Lactulose 20 gm PO HS Carvedilol [Coreg*] 12.5 mg PO AC-BID Carbidopa-Levodopa 25-100 mg [Sinemet 25-100 mg] 1 tab PO DAILY@0700 Escitalopram [Lexapro] 10 mg PO HS Carbidopa-Levodopa 25-100 mg [Sinemet 25-100 mg] 1 tab PO DAILY@1700 PRN PRN Reason: PARKINSON'S SYMPTOMS Enalapril [Vasotec] 5 mg PO HS L. Rhamnosus GG/Inulin [Culturelle Probiotics Capsule] 1 cap PO AC-SUPPER Docusate [Colace] 200 mg PO BID Discontinued Cefaclor [Ceclor] 250 mg PO DAILY Discharge Medication List Ascorbic Acid [Vitamin C] 500 mg PO MOTH 05/30/14 [History] Calcium Carbonate [Tums] 750 mg PO TUFR 05/30/14 [History] Carbidopa/Levodopa [Sinemet CR 50-200 mg] 1 tab PO TID@0900,1300,1700 05/30/14 [ History] Cholecalciferol [Vitamin D3] 2,000 units PO DAILY 05/30/14 [History] Donepezil [Aricept] 10 mg PO HS 05/30/14 [History] Hypromellose [Artificial Tears] 2 drop BOTH EYES QID 05/30/14 [History] Neupro 8 mg TRANSDERM HS 05/30/14 [History] Rivaroxaban [Xarelto] 15 mg PO AC-SUPPER 05/30/14 [History] Sennosides-Docusate Sodium [Senokot-S] 2 tab PO HS 05/30/14 [History] Aspirin EC [Ecotrin Low Dose] 81 mg PO AC-BRKFST 05/31/14 [History] Carvedilol [Coreg*] 12.5 mg PO AC-BID 06/24/15 [History] Lactulose 20 gm PO HS 06/24/15 [History] Magnesium Hydroxide [Milk of Magnesia] 2,400 mg PO DAILY PRN 06/24/15 [History] Ondansetron [Zofran ODT] 4 mg PO TID PRN 06/24/15 [History] Carbidopa-Levodopa 25-100 mg [Sinemet 25-100 mg] 1 tab PO DAILY@0700 06/26/15 [ History] Carbidopa-Levodopa 25-100 mg [Sinemet 25-100 mg] 1 tab PO DAILY@1700 PRN [History] Escitalopram [Lexapro] 10 mg PO HS 12/05/15 [History] Docusate [Colace] 200 mg PO BID 12/25/17 [History] Enalapril [Vasotec] 5 mg PO HS 12/25/17 [History] L. Rhamnosus GG/Inulin [Culturelle Probiotics Capsule] 1 cap PO AC-SUPPER [History] Doxycycline Monohydrate [Monodox] 100 mg PO BID 3 Days #6 cap 12/27/17 [Rx] Furosemide [Lasix] 20 mg PO DAILY #30 tab 12/27/17 [Rx] Follow up Appointment(s)/Referral(s): Eulalia Henriquez MD [STAFF PHYSICIAN] - 1 Week Jayce Avila MD [Primary Care Provider] - 3 Days Discharge Disposition: HOME SELF-CARE
== END 2017-12-27 18:00 | disposition home or self-care (01) | DRG 291 ==
LOC: EC 17:15 → 3OBS 19:44 → OBSVTOIN 12-26 18:22
PROVIDERS: ADMIT Internal Medicine; ATTEND Internal Medicine
DX: I11.0 Hypertensive heart disease with heart failure (principal); J96.01 Acute respiratory failure with hypoxia; I50.33 Acute on chronic diastolic (congestive) heart failure; E11.40 Type 2 diabetes mellitus with diabetic neuropathy, unspecified; E11.65 Type 2 diabetes mellitus with hyperglycemia; F02.80 Dementia in other diseases classified elsewhere, unspecified severity, without behavioral disturbance, psychotic disturbance, mood disturbance, and anxiety; J20.9 Acute bronchitis, unspecified; I48.0 Paroxysmal atrial fibrillation; G31.83 Neurocognitive disorder with Lewy bodies; G89.29 Other chronic pain; T38.0X5A Adverse effect of glucocorticoids and synthetic analogues, initial encounter; M54.5 Low back pain; M19.91 Primary osteoarthritis, unspecified site; R26.9 Unspecified abnormalities of gait and mobility; K59.00 Constipation, unspecified; Z79.01 Long term (current) use of anticoagulants; Z79.82 Long term (current) use of aspirin; Z79.899 Other long term (current) drug therapy; Z86.73 Personal history of transient ischemic attack (TIA), and cerebral infarction without residual deficits; Z87.440 Personal history of urinary (tract) infections; Z86.14 Personal history of Methicillin resistant Staphylococcus aureus infection; Z87.81 Personal history of (healed) traumatic fracture; Z85.828 Personal history of other malignant neoplasm of skin; Z96.641 Presence of right artificial hip joint; Z98.42 Cataract extraction status, left eye; Z98.41 Cataract extraction status, right eye; Z96.1 Presence of intraocular lens; Z82.49 Family history of ischemic heart disease and other diseases of the circulatory system; Z95.0 Presence of cardiac pacemaker; Z88.2 Allergy status to sulfonamides; E04.2 Nontoxic multinodular goiter; F41.9 Anxiety disorder, unspecified
CPT/HCPCS: 36415; 71046; 80048; 80053; 82550; 82553; 83880; 84484; 85025; 85610; 85730; 93005; 93306; 94640; 96374; 99285